=== PATIENT | male | born 1965 | race Two or more races ===

== ENCOUNTER 2020-11-21 13:54 | Emergency (ER) | payer SELFPAY ==
[~2020-11-21] VITALS: Ht 177.8 cm; Wt 90.0 kg
[2020-11-21] MEDS ORDERED: NAPROXEN375 MG PO (16:19)
[2020-11-21 16:37] VITALS: BP 138/42
== END 2020-11-21 16:40 | disposition home or self-care (01) | DRG 552 ==
LOC: ED 13:54
DX: M54.5 Low back pain (principal); G89.29 Other chronic pain